=== PATIENT | male | born 1955 | race Caucasian/White ===

== ENCOUNTER 2017-12-07 13:52 | Day surgery (SDC) | payer BC ==
[~2017-12-07] VITALS: Ht 172.7 cm; Wt 74.5 kg
[~2017-12-07 13:52] MED LIST: ASPI81CH PO; ASPI81EC PO; ATOR20 PO; ATOR40TA PO; Aspirin EC81 MG; Aspirin EC81 MG PO; CEPH500 PO; CHOL10002; GINKGO BILOBA30 MG; IBUP400 PO; IBUPROFEN200 MG PO; LISINOPRIL PO; NEBI5 PO; NICO14TP TOP; VARE1 PO; VITAMIN C500 MG; ZESTORETIC 20-121 EA
== END 2017-12-07 15:28 | disposition home or self-care (01) ==
LOC: ORSCSDS 13:52
PROVIDERS: Surgery
PROC: 0DBH8ZX Excision of Cecum, Via Natural or Artificial Opening Endoscopic, Diagnostic (ICD-10-PCS; principal; 2017-12-07 15:00)
DX: Z12.11 Encounter for screening for malignant neoplasm of colon (principal); D12.0 Benign neoplasm of cecum; I10 Essential (primary) hypertension; E78.5 Hyperlipidemia, unspecified; F17.210 Nicotine dependence, cigarettes, uncomplicated; Z79.82 Long term (current) use of aspirin; Z79.899 Other long term (current) drug therapy
CPT/HCPCS: J7120

== ENCOUNTER 2022-03-24 08:36 | Day surgery (SDC) | payer OTHER ==
[~2022-03-24] VITALS: Ht 172.7 cm; Wt 79.1 kg
[~2022-03-24 08:36] MED LIST changes: -Aspirin EC81 MG; +C COMPLEX1000 M1 PO; -GINKGO BILOBA30 MG; +GINKGO60 MG PO; +LEVSOD75 PO; -VITAMIN C500 MG; -ZESTORETIC 20-121 EA; +ZESTORETIC 20-121 EA PO
[2022-03-24] MEDS ORDERED: ALLOPURINOL100 M1 PO (08:56)
--- NOTE | 2022-03-24 09:59 | NUR ---
History, Chart, Medications and Allergies reviewed before start of procedure. Lungs clear T/O to Auscultation. Patient confirms NPO status and agrees with scheduled surgery. Pre-Op teaching done. Pt verbalizes understanding. Discharge instructions reviewed with patient. Patient verbalizes understanding. Copy given to patient to take home.
--- NOTE | 2022-03-24 19:00 | NUR ---
SHIFT SUMMARY PT HAS DONE WELL POST OP. WORKED w/ THERAPY, EATING, DRINKING, & VOIDING. IS RATING PAIN HIGH CURRENTLY BUT HOPEFULLY OXY DOSE WILL HELP.
--- NOTE | 2022-03-25 04:05 | NUR ---
POD0 RIGHT TOTAL HIP. SENSATION AND CIRCULATION REMAIN INTACT IN RLE. DRESSING IS C/D/I. VSS. PT SLEPT ON AND OFF T/O THE NIGHT. PT AMBULATED MULTIPLE TIMES TO THE BATHROOM TO VOID. TOLLERATING PO INTAKE W/O N/V. MEDICATED FOR PAIN ONCE WITH PRN'S. PLAN FOR PT TO WORK WITH PT THIS AM BEFORE DC HOME. THE PATIENT IS CURRENTLY SLEEPING, IN NO DISTRESS, CALL LIGHT IN REACH.
[2022-03-25 04:46] LABS: BASOPHILS ABSOLUTE AUTO 0.02 K/mm3 (0.00-0.23); BASOPHILS PERCENT AUTO 0 % (0-2); EOSINOPHILS PERCENT AUTO 0 % (0-6); Hematocrit 38.2 % (37.0-53.0); Hemoglobin 13.1 g/dL (13.5-17.5); IMMATURE GRAN ABSOLUTE AUTO 0.07 K/mm3 (0.00-0.10); IMMATURE GRAN PERCENT AUTO 0 % (0-1); LYMPHOCYTES ABSOLUTE AUTO 1.32 K/mm3 (0.84-5.20); LYMPHOCYTES PERCENT AUTO 7 % (21-46); MONOCYTES ABSOLUTE AUTO 1.21 K/mm3 (0.16-1.47); MONOCYTES PERCENT AUTO 7 % (4-13); Mean Corpuscular HGB 30.5 pg (26.0-34.0); Mean Corpuscular HGB Conc 34.3 g/dL (31.5-36.5); Mean Corpuscular Volume 89 fL (80-100); Mean Platelet Volume 9.7 fL (9.1-12.4); NEUTROPHILS ABSOLUTE AUTO 16.07 K/mm3 (1.96-9.15); NEUTROPHILS PERCENT AUTO 86 % (41-73); Platelet Count 278 K/mm3 (150-400); RDW Coefficient Variation 12.6 % (11.7-14.2); RDW Standard Deviation 41.1 fL (35.1-46.3); White Blood Cell Count 18.69 K/mm3 (4.00-11.30)
[2022-03-25 08:02] LABS: Magnesium, Blood 1.9 mg/dL (1.6-2.4)
[2022-03-25 08:49] LABS: Bun/Creatinine Ratio 20.8 (12.0-20.0); Calcium, Blood 9.5 mg/dL (8.5-10.1); Creatinine, Blood 1.2 mg/dL (0.60-1.20); Potassium, Blood 4.5 mmol/L (3.5-5.5)
[2022-03-25] MEDS ORDERED: ACET500 PO (09:51)
[2022-03-25] MEDS ORDERED: OXYC5 PO (09:51)
--- NOTE | 2022-03-25 10:00 | NUR ---
DISCHARGE PT HAS CLEARED THERAPY. PAIN WELL CONTROLLED. EATING, DRINKING, & VOIDING WELL. POLAR PACK SENT w/ PT. ESCORTED OUT VIA W/C.
== END 2022-03-25 10:20 | disposition home or self-care (01) ==
LOC: ORSCMMR 08:36 → SURS 13:16 → ORSCMMR 03-25 10:20
PROVIDERS: Orthopaedic Surgery
PROC: 0SR90JA Replacement of Right Hip Joint with Synthetic Substitute, Uncemented, Open Approach (ICD-10-PCS; principal; 2022-03-24 10:45)
DX: M16.11 Unilateral primary osteoarthritis, right hip (principal); I10 Essential (primary) hypertension; Z87.891 Personal history of nicotine dependence; E03.9 Hypothyroidism, unspecified; E78.00 Pure hypercholesterolemia, unspecified; Z79.899 Other long term (current) drug therapy; Z79.82 Long term (current) use of aspirin; M10.9 Gout, unspecified
CPT/HCPCS: 36415; 72170; 80048; 83735; 85025; 97110; 97116; 97162; A9270; C1776; J0171; J0690; J0735; J1100; J1885; J2250; J2405; J2704; J2765; J2795; J3010; J7120